=== PATIENT | female | born 1990 | race Caucasian/White ===

== ENCOUNTER 2025-03-23 09:22 | Inpatient (IN) ==
[2025-03-23] MEDS ORDERED: LACTATED RINGER'S 1,000 ML IV PRN (09:33)
[2025-03-23] MEDS ORDERED: LIDOCAINE 1% LOCAL 20 ML VIAL INFIL PRN (09:33)
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
[2025-03-23 10:11] LABS: Protein Creatinine Ratio Urine 0.2 (0-0.2); Total Protein Urine Random 13.0 mg/dl (0-11.9)
[2025-03-23 10:11] LABS: Hematocrit (blood only) 36.3 % (37.0-47.0); Hemoglobin 12.1 g/dl (12.0-16.0); Mean Corpuscular Hemoglobin 26.4 pg (25.0-34.0); Mean Corpuscular Volume 79.3 fL (80.0-100.0); Platelet Count 221 K/uL (130-400); RDW Standard Deviation 37.3 fL (36.4-46.3); Red Blood Count 4.58 M/uL (4.20-5.40); White Blood Count 12.88 K/ul (4.8-10.8)
[2025-03-23 10:29] LABS: Alanine Aminotransferase 5.0 U/L (7-52); Albumin Globulin Ratio 1.1 (0.9-2); Alkaline Phosphatase 233.0 U/L (34-104); Anion Gap 10.0 (3-11); Bilirubin,Total 1.3 mg/dl (0.2-1.0); Blood Urea Nitrogen 7.0 mg/dl (6-23); Calcium 8.4 mg/dl (8.6-10.3); Carbon Dioxide 18.0 mmol/L (21-32); Chloride 106.0 mmol/L (98-107); Creatinine Clr Calc Pharmacy 194.6 ml/min; Globulin 3.1 gm/dl (2.5-4.0); Glucose 95.0 mg/dl (70-99(Fasting)); Potassium 3.9 mmol/L (3.5-5.1); Sodium 134.0 mmol/L (136-145); Total Protein 6.5 gm/dl (6.0-8.3)
[2025-03-23] MEDS ORDERED: LIDOCAINE 2% MPF LOCAL 5 ML VIAL EPI PRN (10:52)
[2025-03-23] MEDS: LIDOCAINE 2%/EPINEPHRINE 1:200,000 20 ML PF ONE (10:52)
[2025-03-23] MEDS: BUPIVACAINE 0.25% PF 30 ML VIAL ONE (10:52)
[2025-03-23] MEDS ORDERED: ONDANSETRON INJ 2 MG/ML 2 ML VIAL IV PRN (10:52)
[2025-03-23] MEDS ORDERED: ROPIVACAINE 0.5% PF 5 MG/ML 20 ML VIAL EPI PRN (10:52)
[2025-03-23] MEDS ORDERED: NALOXONE HCL 0.4 MG/1 ML VIAL/CARP IV PRN (10:52)
[2025-03-23] MEDS ORDERED: diphenhydrAMINE 50 MG/ML VIAL IV PRN (10:52)
[2025-03-23] MEDS ORDERED: NALOXONE HCL 1 MG in SODIUM CHLORIDE 0.9% 1,000 ML IV PRN (10:52)
[2025-03-23] MEDS ORDERED: fentANYL 2 MCG/ML BUPIVacaine 0.125%-NSS 100ML BAG EPI PRN (10:52)
[2025-03-23] MEDS ORDERED: NALBUPHINE HCL INJ 10 MG/ML AMP IV PRN (10:52)
[2025-03-23] MEDS: fentANYL 2 MCG/ML BUPIVacaine 0.125%-NSS 100ML BAG ONE (10:52)
[2025-03-23] MEDS ORDERED: PROMETHAZINE 6.25 MG/50.25 ML BAG IV PRN (10:52)
[2025-03-23] MEDS ORDERED: BUPIVACAINE 0.25% PF 30 ML VIAL EPI PRN (10:52)
[2025-03-23] MEDS ORDERED: SODIUM CHLORIDE 0.9% PF INJ 10 ML VIAL EPI PRN (10:52)
--- NOTE | 2025-03-23 11:27 | Labor Progress Brief Note ---
Date of Service March 23, 2025 Subjective comfortable w/ epidural Assessment & Plan (1) Encounter for trial of labor: (2) Previous delivery affecting , antepartum: (3) Gestational diabetes mellitus (GDM) affecting , antepartum: Plan 34 yo at 39 wga presents in labor VSS after epidural, PIH labs were wnl > will continue to monitor Fetus cat 1. Hasn't had many accels but still cat 1, will monitor Labor - offered arom and pt accepts, tolerated well A1GDM - bg q4 GBS neg epidural in place Admission and Anticipated Discharge Date Admission Date: March 23, 2025 Physical Exam Genitourinary: Manual OB Exam: + cervical dilation 5 cm, + cervical effacement 90%, + station -1 and + amniotic fluid (arom clear) OB Exam Monitor Tracing: + external FHT monitor used, + external uterine monitor used (q4) and + category I (150/mod/-accel/-decel) Results & Data Vital Signs (Past 12 Hours) Vital Signs Temp Pulse Resp BP Pulse Ox 03/23/25 11:22 98 03/23/25 11:22 100 H 03/23/25 11:19 98 H 03/23/25 11:19 133/73 03/23/25 11:17 99 03/23/25 11:17 105 H 03/23/25 11:17 133/71 03/23/25 11:15 89 03/23/25 11:15 127/74 03/23/25 11:13 85 03/23/25 11:13 123/71 03/23/25 11:12 99 03/23/25 11:12 86 03/23/25 11:11 87 03/23/25 11:11 115/74 03/23/25 11:09 87 03/23/25 11:09 120/74 03/23/25 11:07 99 03/23/25 11:07 87 03/23/25 11:07 133/85 03/23/25 11:05 81 03/23/25 11:05 123/74 03/23/25 11:04 86 03/23/25 11:04 118/84 03/23/25 11:02 99 03/23/25 11:02 91 H 03/23/25 11:01 83 03/23/25 11:01 118/77 03/23/25 10:59 95 H 03/23/25 10:59 114/77 03/23/25 10:57 99 03/23/25 10:57 92 H 03/23/25 10:55 91 H 03/23/25 10:55 106/65 03/23/25 10:53 91 H 03/23/25 10:53 122/70 03/23/25 10:52 99 03/23/25 10:52 88 03/23/25 10:51 96 H 03/23/25 10:51 125/71 03/23/25 10:50 108 H 03/23/25 10:50 120/61 03/23/25 10:47 98 03/23/25 10:47 92 H 03/23/25 10:46 96 H 03/23/25 10:46 163/72 H 03/23/25 10:44 101 H 03/23/25 10:44 154/72 H 03/23/25 10:42 97 03/23/25 10:42 89 03/23/25 10:37 100 03/23/25 10:37 118 H 03/23/25 10:32 99 03/23/25 10:32 103 H 03/23/25 10:30 103 H 03/23/25 10:30 151/97 H 03/23/25 10:27 98 03/23/25 10:27 98 H 03/23/25 10:17 99 03/23/25 10:17 87 03/23/25 10:12 99 03/23/25 10:12 95 H 03/23/25 10:07 100 03/23/25 10:07 88 03/23/25 09:30 98.2 F 16 03/23/25 09:29 88 03/23/25 09:29 161/99 H 03/23/25 09:28 92 H 152/102 H Coding Level of Care Code None Diagnoses Encounter for trial of labor Previous delivery affecting , antepartum O34.219 Gestational diabetes mellitus (GDM) affecting , antepartum O24.419
[2025-03-23] MEDS: OXYTOCIN 30 UNITS/NSS 30 UNITS/500 ML BAG IV PRN (13:00)
--- NOTE | 2025-03-23 13:20 | Delivery Summary ---
Vaginal Delivery Summary Date of Service March 23, 2025 Vaginal Delivery Summary PREOPERATIVE DIAGNOSIS: 1. Single intrauterine at 39 wga 2. Labor 3. History of CS, desires trial of labor 4. A1GDM POSTOPERATIVE DIAGNOSIS: 1. Single intrauterine at 39 wga 2. Labor 3. History of CS, desires trial of labor 4. A1GDM 5. Shoulder dystocia 6. Delivered PROCEDURE: 1. Normal spontaneous vaginal delivery. SURGEON: Malou Glasgow MD ANESTHESIA: Epidural. QUANTITATIVE BLOOD LOSS: 100 mL FLUIDS: Continuous LR. URINE OUTPUT: 100cc. COMPLICATIONS: None. CONDITION: Stable. INDICATIONS: 34 yo at 39 wga presented w/ ctx increasing in frequency and intensity. She was 4-5cm on arrival. She received an epidural for pain control and underwent arom. She progressed to complete and desired to push FINDINGS: A viable male infant, weight pending with Apgars of 8 and 9 at 1 and 5 minutes respectively. SPECIMEN: Cord blood, cord gases OPERATIVE REPORT: The patient progressed to 10 cm, 100% effaced and +2 station, pushed over intact perineum with anesthesia to deliver a viable male , weight and Apgars as above. Head of delivered in GEOVANNA position. No nuchal cord was present. Body and shoulders did not easily deliver with gentle d ownward traction. Shoulder dystocia was called and relieved with McRobert's maneuver, suprapubic pressure and rotational maneuvers. Dystocia was relieved and remainder of body delivered spontaneously. was delivered to maternal abdomen and nursing staff. Delayed cord clamping was deferred. Cord was clamped and cut. Cord blood was obtained. Placenta delivered spontaneously intact with 3-vessel cord. IV oxytocin and fundal massage were given for excellent hemostasis. Vagina, cervix, perineum, and placenta were inspected. A right periurethral laceration was repaired using 4-0 vicryl, there was excellent hemostasis. Sponge and needle counts correct x2. No sponges were left behind. Mother and stable in immediate period. Total shoulder dystocia approximately 1 minute. Events reviewed with patient and fob, questions answered to apparent satisfaction [facility] [place] Vaginal Delivery Charge Vaginal Delivery Codes: 60817 global code for the antepartum, delivery, and post- Delivery Type Details:
[2025-03-23] MEDS ORDERED: DIPHTHER/TETAN/PERTUS Vaccine (Tdap, Adol/Adult) 0.5mL IM ONE (13:22)
[2025-03-23] MEDS ORDERED: HYDROCORTISONE ACETATE 25 MG SUPP PR PRN (13:22)
[2025-03-23] MEDS ORDERED: OXYTOCIN 30 UNITS/NSS 30 UNITS/500 ML BAG IV PRN (13:22)
[2025-03-23 13:38] LABS: Base Excess Cord Arterial Bld -3.5 mEq/L (-9-1.8); CO2 Cord Arterial Blood 38 mmHg (39.1-73.5); HCO3 Cord Arterial Blood 22 mmol/L (19.7-28.5); Oxygen Sat Cord Arterial Blood 60.0 % (<60); PO2 Cord Arterial Blood 29 mmHg (4.1-31.7); pH Cord Arterial Blood 7.36 (7.1-7.38)
[2025-03-23] MEDS: IBUPROFEN 600 MG TAB PO PRN (13:39)
--- NOTE | 2025-03-23 13:49 | Anesthesia Procedure Note ---
Date of Service March 23, 2025 Anesthesia Post Epidural Note Vital Signs Vital Signs: Temp Pulse Resp BP Pulse Ox 36.6 C 90 16 136/88 83 L 03/23/25 13:10 03/23/25 13:35 03/23/25 13:25 03/23/25 13:35 03/23/25 12:54 Pain Intensity Lower Abdomen: Pain Intensity: 1 Notes Mental Status: alert / awake / arousable Nausea / Vomiting: adequately controlled Pain: adequately controlled Airway Patency, RR, SpO2: stable & adequate BP & HR: stable & adequate Hydration State: stable & adequate Neuraxial Anesthesia: was administered and sensory block is resolving Anesthetic Complications: no major complications apparent Epidural: Removed without complications and With tip intact
[2025-03-23] MEDS: BUPIVACAINE 0.25% PF 30 ML VIAL EPI STA (13:51)
[2025-03-23] MEDS: SODIUM CHLORIDE 0.9% PF INJ 10 ML VIAL ONE (13:51)
[2025-03-23] MEDS: LIDOCAINE 2%/EPINEPHRINE 1:200,000 20 ML PF EPI STA (13:52)
[2025-03-23] MEDS: SODIUM CHLORIDE 0.9% PF INJ 10 ML VIAL EPI STA (13:52)
[2025-03-23] MEDS: BENZOCAINE 20% SPRY 85 APPLN/85 GM CAN EXT PRN (15:23)
[2025-03-23] MEDS: DOCUSATE SODIUM 100 MG CAP PO SCH (19:55)
[2025-03-23] MEDS: ACETAMINOPHEN 325 MG TAB PO PRN (22:07)
[2025-03-24 03:11] VITALS: RESP 18
[2025-03-24] MEDS: LEVOTHYROXINE SODIUM 200 MCG TABLET PO SCH (06:11)
--- NOTE | 2025-03-24 06:19 | Obstetrical Progress Note ---
Date of Service <Alina Schwartz MD - Last Filed: 03/24/25 07:06> March 24, 2025 Assessment & Plan <Alina Schwartz MD - Last Filed: 03/24/25 07:06> (1) care following vaginal delivery: Plan -Stable routine care. Breast feeding. Rhesus negative. Rubella Non Immune. Continue to monitor -Appt 1 week for recheck BP <Malou Glasgow MD - Last Filed: 03/24/25 07:08> (1) care following vaginal delivery: Subjective <Alina Schwartz MD - Last Filed: 03/24/25 07:06> Ambulation: ambulating normally Voiding: no voiding problems Passing Gas:: Yes Diet Tolerance:: regular diet Lochia:: Small Feeding Type:: breast feeding Current Pain Level(1-10): 2 PPD1 Review of Systems All systems reviewed & are unremarkable except as noted in HPI & below i. Denies fever, chills, sweats ii. Denies SOB, difficulty breathing, chest pain, palpitations, chest pressure iii. Denies breast pain. iv. Denies Dysuria v. Denies headache or changes in vision. Physical Exam <Alina Schwartz MD - Last Filed: 03/24/25 07:06> Constitutional WD/WN, vitals as above Respiratory normal respiratory effort, lungs clear to auscultation Cardiovascular RRR, no murmur, no edema Gastrointestinal (Abdomen) normal bowel sounds, soft, nontender, no hepatosplenomegaly On palpation of abdomen, Fundus is located at the umbilicus uterus. Uterus is firm and has begun involution, at approximately 1cm/day Psychiatric A+Ox3, euthymic affect Results & Data <Alina Schwartz MD - Last Filed: 03/24/25 07:06> Vital Signs (Past 12 Hours) Vital Signs Temp Pulse Resp BP Pulse Ox O2 Del Method 03/24/25 03:10 36.5 C 79 18 137/87 99 Room Air 03/23/25 22:51 36.9 C 81 16 105/69 98 Room Air 03/23/25 20:50 150/91 H 03/23/25 20:34 36.9 C 85 16 157/105 H 98 Room Air Supervising Physician <Malou Glasgow MD - Last Filed: 03/24/25 07:08> Co-Signing Physician Notes Resident Physician Supervision Note: I interviewed and examined the patient. Discussed with Dr. Schwartz and agree with findings and plan as documented in the note. Any exceptions or c larifications are listed here: PP1 s/p , doing well. Had mild range bp last evening but now normal, denies s/s PIH. Exam benign and wnl. Desires dc, ok at 24hrs. Will have bp check later this week Documented By: Malou Glasgow MD Resident Activity Tracking <Alina Schwartz MD - Last Filed: 03/24/25 07:06> Resident Involvement: Resident Care Provided Care Provided: OB Delivery
[2025-03-24] MEDS: PRENATAL VITAMIN 1 TAB PO SCH (08:26)
[2025-03-24 08:55] VITALS: BP 136/86; PULSE 76; TEMP 98.4; O2SAT 100
== END 2025-03-24 14:19 | disposition home or self-care (01) | DRG 768 ==
LOC: OPB 09:22 → 4S1 09:24 → 4E2 16:01